=== PATIENT | male | born 1985 | race African-American/Black ===

== ENCOUNTER 2021-08-16 09:39 | Emergency (ER) | payer BC, MEDICAID ==
[~2021-08-16] VITALS: Ht 180.3 cm; Wt 79.0 kg
[2021-08-16 09:47] VITALS: BP 157/100
[2021-08-16] MEDS ORDERED: LIDOCAINE HCL/EPINEPHRINE 1%-EPI 1:100,000 50 ML VIAL INFIL ONE (10:45)
[2021-08-16] MEDS ORDERED: ACETAMINOPHEN 325MG TABLET PO ONE (10:45)
[2021-08-16] MEDS ORDERED: TETANUS, DIPHTHERIA, PERTUSSIS VAC/PF 0.5ML (>10YR OLD) IM ONE (10:45)
[2021-08-16] MEDS ORDERED: LIDOCAINE HCL/EPINEPHRINE 1%-EPI 1:100,000 10 ML VIAL INFIL NR (11:30)
[2021-08-16] MEDS ORDERED: LIDOCAINE HCL/EPINEPHRINE 1%-EPI 1:100,000 20 ML VIAL INFIL NR (13:30)
== END 2021-08-16 12:44 | disposition home or self-care (01) ==
LOC: ER 10:03
DX: S01.81XA Laceration without foreign body of other part of head, initial encounter (principal); R07.81 Pleurodynia; R07.89 Other chest pain; V49.49XA Driver injured in collision with other motor vehicles in traffic accident, initial encounter; Y93.89 Activity, other specified; Y92.488 Other paved roadways as the place of occurrence of the external cause
CPT/HCPCS: 12013; 70450; 71045; 72125; 90471; 90715; 93005; 99284; Z7610; J3490